=== PATIENT | male | born 1980 | race Caucasian/White ===

== ENCOUNTER → 2017-04-19 | Outpatient (CLI) | payer MEDICAID ==
--- NOTE | 2017-04-19 14:57 | RADIOLOGY REPORT (SQ) ---
EXAM DESCRIPTION: BARIUM SWALLOW ESOPHAGUS COMPLETED DATE/TIME: 04/19/2017 2:16 pm REASON FOR STUDY: DYSPHAGIA R13.12 DYSPHAGIA, OROPHARYNGEAL PHASE COMPARISON: None. TECHNIQUE: Under fluoroscopic guidance, patient ingested effervescent granules followed by thick and thin barium. Fluoroscopic spot images and routine radiographic images acquired and stored on PACS. 12 MM BARIUM TABLET GIVEN: Yes. No significant delay in passage. LIMITATIONS: None. FLUOROSCOPY TIME: FLUORO TIME: 1.8 minutes 6 series of digital images saved to PACS. FINDINGS: NEUROMUSCULAR COORDINATION OF SWALLOW: Normal. No aspiration. ESOPHAGEAL MOTILITY: Normal peristalsis. Occasional tertiary contractions of the distal esophagus. ESOPHAGEAL MUCOSA: Normal mucosa without masses or ulceration. GASTRO-ESOPHAGEAL JUNCTION: Tiny hiatal hernia. No gastroesophageal reflux on today's exam. NON-GI TRACT STRUCTURES: No significant finding. OTHER: No other significant finding. IMPRESSION: Small hiatal hernia with few tertiary contractions of the distal esophagus. No reflux o n today's study. No stricture. Fluoroscopy and digital images over the xochitl and hypopharynx are unremarkable. COMMENT: Quality ID [id number]: Final reports for procedures using fluoroscopy that document radiation exp osure indices, or exposure time and number of fluorographic images (if radiation exposure indices are not available) TECHNICAL DOCUMENTATION: JOB ID: [id number] [employer]- All Rights Reserved
== END ==
LOC: RAD 11:57
PROVIDERS: ATTEND Family Medicine
DX: R13.12 Dysphagia, oropharyngeal phase (principal)
CPT/HCPCS: 74220

== ENCOUNTER 2019-01-28 11:38 | Emergency (ER) | payer BC, MEDICAID ==
[2019-01-28] MEDS ORDERED: PROMETHAZINE HCL INJ 25 MG/1 ML VIAL IV ONE (13:19)
[2019-01-28] MEDS ORDERED: KETOROLAC TROMETHAMINE INJ/PF 30 MG/1 ML SDV IV ONE (13:19)
[2019-01-28] MEDS ORDERED: NORMAL SALINE 1000 ML 1,000 ML IV ONE (13:20)
[2019-01-28] MEDS ORDERED: DIPHENHYDRAMINE HCL 50 MG/ML VIAL IV ONE (13:49)
[2019-01-28] MEDS ORDERED: MORPHINE SULFATE 10 MG/ML INJ IV ONE (15:47)
--- NOTE | 2019-01-28 15:47 | ER Document Report ---
ED Neck/Back Problem - General Chief Complaint: Neck Pain >24hrs old Stated Complaint: NECK PAIN Time Seen by Provider: 01/28/19 13:19 Mode of Arrival: Ambulatory Information source: Patient Notes: Patient is a 38-year-old male with a history of migraines and viral meningitis when he was 23 years old who presents to the ER today for headache, neck pain, upper back pain times 2 days. Patient went to [facility] today, had lab work drawn and they sent him here by ambulance for his headache. Patient denies any fevers recently, denies any nausea, vomiting, light sensitivity, blurred vision, cough or other ill symptoms, patient states that when the migraine first came on he did have relief after Zofran, Advil and Tylenol, did actually take a long nap after that, but states when he woke up the migraine was back. TRAVEL OUTSIDE OF THE [place] IN LAST 30 DAYS: No - Related Data Allergies/Adverse Reactions: No Known Allergies Allergy (Verified 05/27/12 14:42) Past Medical History - General Information source: Patient - Social History Smoking Status: Never Smoker Chew tobacco use (# tins/day): No Frequency of alcohol use: None Drug Abuse: None Family History: CAD, CVA, Hypertension Patient has suicidal ideation: No Patient has homicidal ideation: No - Past Medical History Cardiac Medical History: Reports: Hx Hypertension Renal/ Medical History: Denies: Hx Peritoneal Dialysis GI Medical History: Reports: Hx Gastroesophageal Reflux Disease Psychiatric Medical History: Reports: Hx Anxiety - Immunizations Immunizations up to date: Yes Hx Diphtheria, Pertussis, Tetanus Vaccination: Yes Review of Systems - Review of Systems Constitutional: No symptoms reported EENT: No symptoms reported Cardiovascular: No symptoms reported Respiratory: No symptoms reported Gastrointestinal: No symptoms reported Genitourinary: No symptoms reported Male Genitourinary: No symptoms reported Musculoskeletal: No symptoms reported Skin: No symptoms reported Hematologic/Lymphatic: No symptoms reported Neurological/Psychological: See HPI Physical Exam - Vital signs Vitals: Temp Pulse Resp BP Pulse Ox 98.1 F 98 18 142/80 H 99 01/28/19 11:38 01/28/19 11:38 01/28/19 11:38 01/28/19 11:38 01/28/19 11:38 - Notes Notes: PHYSICAL EXAMINATION: GENERAL: lying in position, otherwise in no acute distress. HEAD: Atraumatic, normocephalic. EYES: Pupils equal round and reactive to light, extraocular movements intact, sclera anicteric, conjunctiva are normal. NECK: Normal range of motion, supple without lymphadenopathy LUNGS: CTAB and equal. No wheezes rales or rhonchi. HEART: Regular rate and rhythm without murmurs ABDOMEN: Soft, no tenderness. No guarding, no rebound BACK: no vertebral tenderness, normal ROM GI/: no CVA tenderness EXTREMITIES: Normal range of motion, no pitting edema. No cyanosis. NEUROLOGICAL: no signs of meningismus, lying in position, no pain with passive leg raises, no pain with chin to chest, Kernig's and Brudzinski's signs negative, cranial nerves grossly intact. Normal sensory/motor exams. PSYCH: Normal mood, normal affect. SKIN: Warm, Dry, normal turgor, no rashes or lesions noted Course - Re-evaluation Re-evalutation: 01/28/19 18:21 Patient has no signs of meningismus, feels better after migraine cocktail, reports "I have no pain" at this time. - Vital Signs Vital signs: Temp Pulse Resp BP Pulse Ox 98.2 F 74 16 134/69 H 99 01/28/19 17:27 01/28/19 17:27 01/28/19 17:27 01/28/19 17:27 01/28/19 17:27 Discharge - Discharge Clinical Impression: Migraine Qualifiers: Migraine type: unspecified Status migrainosus presence: without status migrainosus Intractability: not intractable Qualified Code(s): G43.909 - Migraine, unspecified, not intractable, without status migrainosus Condition: Stable Disposition: HOME, SELF-CARE Instructions: Migraine Headache ([facility]) Additional Instructions: Return immediately for any new or worsening symptoms. Follow up with primary care provider, call tomorrow to make followup appointment. [facility] [address] Address: [address] [place] [address] [place] [address] Prescriptions: Ibuprofen [Motrin 800 mg Tablet] 800 mg PO Q8H PRN #30 tab PRN Reason: Promethazine HCl [Phenergan 25 mg Tablet] 1 tab PO Q6H PRN #15 tablet PRN Reason: Forms: Return to Work
--- NOTE | 2019-01-28 17:00 | RADIOLOGY REPORT (SQ) ---
EXAM DESCRIPTION: CT HEAD WITHOUT COMPLETED DATE/TIME: 01/28/2019 4:13 pm REASON FOR STUDY: migraine, no hx of COMPARISON: None. TECHNIQUE: Axial images acquired through the brain without intravenous contrast. Images reviewed wi th bone, brain and subdural windows. Additional sagittal and coronal reconstructions were generated. Images stored on PACS. All CT scanners at this facility use dose modulation, iterative reconstruction, and/or weight based d osing when appropriate to reduce radiation dose to as low as reasonably achievable (ALARA). [facility]: Dose Right [facility]: CareDose [facility]: Dose Right [facility]: Teradose 4D [facility]: [employer] RADIATION DOSE: CT Rad equipment meets quality standard of care and radiation dose reduction techniq ues were employed. CTDIvol: 53.2 mGy. DLP: 991 mGy-cm. mGy. LIMITATIONS: None. FINDINGS: VENTRICLES: Normal size and contour. CEREBRUM: No masses. No hemorrhage. No midline shift. No evidence for acute infarction. Normal gra y/white matter differentiation. No areas of low density in the white matter. CEREBELLUM: No masses. No hemorrhage. No alteration of density. No evidence for acute infarction. EXTRAAXIAL SPACES: No fluid collections. No masses. ORBITS AND GLOBE: No intra- or extraconal masses. Normal contour of globe without masses. CALVARIUM: No fracture. PARANASAL SINUSES: No fluid or mucosal thickening. SOFT TISSUES: No mass or hematoma. OTHER: No other significant finding. IMPRESSION: NORMAL BRAIN CT WITHOUT CONTRAST. EVIDENCE OF ACUTE STROKE: NO. COMMENT: Quality ID # [id number]: Final reports with documentation of one or more dose reduction techniques (e.g., Automated exposure control, adjustment of the mA and/or kV according to patient size, use of iterative reconstruction technique) TECHNICAL DOCUMENTATION: JOB ID: [id number] [employer]- All Rights Reserved Reading location - IP/workstation name: [email or web address]
[2019-01-28 17:28] VITALS: BP 134/69
== END 2019-01-28 18:29 | disposition home or self-care (01) ==
LOC: ER 11:38
DX: G43.909 Migraine, unspecified, not intractable, without status migrainosus (principal); M54.2 Cervicalgia; M54.6 Pain in thoracic spine; I10 Essential (primary) hypertension
CPT/HCPCS: 99284; 96361; 96374; 96375; 70450; J1200; J1885; J2270; J2550; J7030

== ENCOUNTER 2019-06-04 23:24 | Emergency (ER) | payer BC ==
[2019-06-04] MEDS ORDERED: ASPIRIN 81 MG TABLET, CHEWABLE PO ONE (23:42)
--- NOTE | 2019-06-05 00:23 | RADIOLOGY REPORT (SQ) ---
EXAM DESCRIPTION: XR CHEST 2 VIEWS COMPLETED DATE/TME: 06/04/2019 00:00 CLINICAL HISTORY: 39 years, Male, CP COMPARISON: 11/24/2013. NUMBER OF VIEWS: 2 TECHNIQUE: Two views of the chest were obtained in PA and lateral projection. LIMITATIONS: None. FINDINGS: Unremarkable cardiac and mediastinal silhouette. Heart size is normal. Lungs are clear without focal opacity, pneumothorax or pleural effusions. The visualized bones are within normal limits. IMPRESSION: No acute cardiopulmonary abnormalities. copyright 2010 [employer]- All Rights Reserved
[2019-06-05 00:28] LABS: ABSOLUTE EOSINOPHILS # (AUTO) 0.2 10^3/uL (0.0-0.6); ABSOLUTE LYMPHOCYTES (AUTO) 1.9 10^3/uL (0.5-4.7); ABSOLUTE MONOCYTES (AUTO) 0.6 10^3/uL (0.1-1.4); ABSOLUTE NEUT (AUTO) 3.6 10^3/uL (1.7-8.2); BASOPHILS % (AUTO) 0.7 % (0-2); EOSINOPHILS % (AUTO) 3.4 % (0-6); HEMATOCRIT 43.1 % (37.9-51.0); HEMOGLOBIN 14.6 g/dL (13.5-17.0); LYMPHOCYTES % (AUTO) 30.3 % (13-45); MEAN CORPUSCULAR HEMOGLOBIN 29.6 pg (27.0-33.4); MEAN CORPUSCULAR HGB CONC 33.9 g/dL (32.0-36.0); MEAN CORPUSCULAR VOLUME 87 fl (80-97); MONOCYTES % (AUTO) 8.9 % (3-13); PLATELET COUNT 258 10^3/uL (150-450); RED BLOOD COUNT 4.94 10^6/uL (4.35-5.55); RED CELL DISTRIBUTION WIDTH 13.5 % (11.5-14.0); SEGMENTED NEUTROPHILS % (AUTO) 56.7 % (42-78); TOTAL CELLS COUNTED % (AUTO) 100 %; WHITE BLOOD COUNT 6.3 10^3/uL (4.0-10.5)
[2019-06-05 00:46] LABS: ALANINE AMINOTRANSFERASE 59 U/L (21-72); ALBUMIN 4.4 g/dL (3.5-5.0); ALKALINE PHOSPHATASE 61 U/L (38-126); ANION GAP 10 (5-19); ASPARTATE AMINO TRANSFERASE 29 U/L (17-59); BILIRUBIN,DIRECT 0.3 mg/dL (0.0-0.4); BILIRUBIN,TOTAL 0.4 mg/dL (0.2-1.3); BLOOD UREA NITROGEN 16 mg/dL (7-20); CALCIUM 10.2 mg/dL (8.4-10.2); CARBON DIOXIDE 25 mmol/L (22-30); CHLORIDE 107 mmol/L (98-107); CREATINE KINASE 89 U/L (55-170); GLUCOSE 111 mg/dL (75-110); POTASSIUM 4.1 mmol/L (3.6-5.0); TOTAL PROTEIN 7.5 g/dL (6.3-8.2)
[2019-06-05 00:58] LABS: CREATINE KINASE MB 0.63 ng/mL (<4.55)
[2019-06-05 01:05] LABS: TROPONIN I < 0.012 ng/mL
--- NOTE | 2019-06-05 02:23 | ER Document Report ---
ED General - General Chief Complaint: Chest Pain Stated Complaint: CHEST PAIN Time Seen by Provider: 06/05/19 01:16 Primary Care Provider: RODERICK DUBOIS PA-C [Primary Care Provider] - Follow up as needed TRAVEL OUTSIDE OF THE [place] IN LAST 30 DAYS: No - HPI Notes: Patient is a 39-year-old male who presents to the emergency department for evaluation of chest pain. He was at home on his couch when it started. This was about 90 minutes prior to arrival. It is a diffuse pain. When asked to describe it, I offered several adjectives including sharp, stabbing, shooting, burning, squeezing. The patient states that it was all of the above. He denies any associated dyspnea, palpitations, dizziness, diaphoresis, near syncope associated with it. He states that he tried multiple positions and did not change his pain in any way. It seemed to progressively worsen. He tried ibuprofen and Tums at home. He presented to the emergency department for further evaluation. He states he had a similar episode a few weeks ago but it was less intense. His pain was a 10 out of 10 at worst, he is now pain-free. He does not have any exertional chest tightness or pain. He sees a doctor regularly. - Related Data Allergies/Adverse Reactions: No Known Allergies Allergy (Verified 05/27/12 14:42) Past Medical History - General Information source: Patient - Social History Smoking Status: Former Smoker Family History: CAD - Stents in father in his mid-to-late 50s, CVA, Hypertension Patient has suicidal ideation: No Patient has homicidal ideation: No Renal/ Medical History: Denies: Hx Peritoneal Dialysis GI Medical History: Reports: Hx Gastroesophageal Reflux Disease Psychiatric Medical History: Reports: Hx Anxiety - Immunizations Immunizations up to date: Yes Hx Diphtheria, Pertussis, Tetanus Vaccination: Yes Review of Systems - Review of Systems Constitutional: No symptoms reported EENT: No symptoms reported Cardiovascular: See HPI Respiratory: No symptoms reported Gastrointestinal: No symptoms reported Genitourinary: No symptoms reported Musculoskeletal: No symptoms reported Skin: No symptoms reported Neurological/Psychological: No symptoms reported Physical Exam - Vital signs Vitals: Temp Pulse Resp BP Pulse Ox 97.6 F 76 18 146/101 H 98 06/04/19 23:35 06/04/19 23:35 06/04/19 23:35 06/04/19 23:35 06/04/19 23:35 - Notes Notes: Vital signs reviewed, please refer to chart. Head is normocephalic, atraumatic. Pupils equal round, reactive to light. Neck is supple without meningismus. Heart is regular rate and rhythm. Lungs are clear to auscultation bilaterally. Chest wall excursion is equal bilaterally, chest wall is nontender. Abdomen is soft, nontender, normoactive bowel sounds throughout. Extremities without cyanosis, clubbing. Posterior calves are nontender. Peripheral pulses are equal. Skin is warm and dry. Patient is awake, alert, neurological exam is nonfocal. Course - Re-evaluation Re-evalutation: 06/05/19 02:21 Patient presents emergency department for evaluation. He had laboratory investigations and EKG is obtained through triage. EKG is unremarkable. Laboratory investigations are unremarkable. Patient does have a family history of coronary artery disease, although not markedly premature. This pain is not typical. We will go ahead and order a delta troponin. If it is negative as expected, he is to follow-up with his primary care physician. The plan was explained to the patient. He was told that he may need to further seek out cardiac evaluation. He voiced understanding. 06/05/19 03:28 Patient remains chest pain-free. Second troponin is totally negative. He is to follow-up with his primary care provider. He is to return to the ED with worsening. - Vital Signs Vital signs: Temp Pulse Resp BP Pulse Ox 97.6 F 76 13 127/89 H 98 06/04/19 23:35 06/04/19 23:35 06/05/19 02:01 06/05/19 02:00 06/05/19 02:01 - Laboratory Result Diagrams: 06/05/19 00:01 06/05/19 00:01 Laboratory results interpreted by me: 06/05/19 00:01 Glucose 111 H - Diagnostic Test Radiology reviewed: Reports reviewed Radiology results interpreted by me: 06/05/19 02:23 Chest X-Ray 06/04/19 00:00 IMPRESSION: No acute cardiopulmonary abnormalities. copyright 2010 [employer]- All Rights Reserved - EKG Interpretation by Me Additional EKG results interpreted by me: 06/05/19 02:24 Sinus mechanism with a rate of 71 bpm. Normal axis and intervals, no acute ST changes concerning for ischemia or infarction. Discharge - Discharge Clinical Impression: Chest pain Condition: Stable Disposition: HOME, SELF-CARE Instructions: Chest Pain of Unclear Cause ([facility]) Additional Instructions: No clear cause was found for your chest pain today. Follow-up with your primary care provider in the next week for further evaluation. If you develop worsening or new concerning symptoms of any sort, return immediately to the emergency d epartment for reevaluation. Referrals: RODERICK DUBOIS PA-C [Primary Care Provider] - Follow up as needed
[2019-06-05 03:36] VITALS: BP 122/69
--- NOTE | 2019-06-05 18:18 | EKG REPORT ---
SEVERITY:- NORMAL ECG - SINUS RHYTHM : Confirmed by: Katty De Los Santos MD 05-Jun-2019 18:17:50
== END 2019-06-05 03:42 | disposition home or self-care (01) ==
LOC: ER 23:24
DX: R07.89 Other chest pain (principal); Z87.891 Personal history of nicotine dependence; Z82.49 Family history of ischemic heart disease and other diseases of the circulatory system
CPT/HCPCS: 36415; 71046; 80053; 82550; 82553; 84484; 85025; 93005; 93010; 99285

== ENCOUNTER 2019-11-30 08:11 | Emergency (ER) | payer BC ==
[2019-11-30 08:47] LABS: ABSOLUTE BASOPHILS # (AUTO) 0.1 10^3/uL (0.0-0.2); ABSOLUTE LYMPHOCYTES (AUTO) 1.2 10^3/uL (0.5-4.7); ABSOLUTE MONOCYTES (AUTO) 0.6 10^3/uL (0.1-1.4); ABSOLUTE NEUT (AUTO) 10.8 10^3/uL (1.7-8.2); BASOPHILS % (AUTO) 0.5 % (0-2); EOSINOPHILS % (AUTO) 0.1 % (0-6); HEMATOCRIT 44.3 % (37.9-51.0); HEMOGLOBIN 15.1 g/dL (13.5-17.0); LYMPHOCYTES % (AUTO) 9.8 % (13-45); MEAN CORPUSCULAR HEMOGLOBIN 30.2 pg (27.0-33.4); MEAN CORPUSCULAR HGB CONC 34.1 g/dL (32.0-36.0); MEAN CORPUSCULAR VOLUME 89 fl (80-97); MONOCYTES % (AUTO) 4.7 % (3-13); PLATELET COUNT 283 10^3/uL (150-450); RED CELL DISTRIBUTION WIDTH 13.8 % (11.5-14.0); SEGMENTED NEUTROPHILS % (AUTO) 84.9 % (42-78); TOTAL CELLS COUNTED % (AUTO) 100 %; WHITE BLOOD COUNT 12.7 10^3/uL (4.0-10.5)
[2019-11-30 09:07] LABS: ALBUMIN 4.7 g/dL (3.5-5.0); ALKALINE PHOSPHATASE 65 U/L (38-126); ANION GAP 12 (5-19); ASPARTATE AMINO TRANSFERASE 30 U/L (17-59); BILIRUBIN,DIRECT 0.4 mg/dL (0.0-0.4); BILIRUBIN,TOTAL 0.8 mg/dL (0.2-1.3); BLOOD UREA NITROGEN 20 mg/dL (7-20); CALCIUM 10.8 mg/dL (8.4-10.2); CARBON DIOXIDE 26 mmol/L (22-30); CHLORIDE 104 mmol/L (98-107); GLUCOSE 121 mg/dL (75-110); POTASSIUM 4.3 mmol/L (3.6-5.0)
[2019-11-30] MEDS ORDERED: ONDANSETRON HCL INJ/PF 4 MG/2 ML SDV IV ONE ×2 (09:24→10:56)
[2019-11-30] MEDS ORDERED: HYDROMORPHONE HCL INJ/PF 2 MG/ML AMPULE IV ONE ×2 (09:24→10:56)
[2019-11-30 09:26] LABS: APPEARANCE,URINE CLEAR; BILIRUBIN,URINE NEGATIVE (NEGATIVE); COLOR,URINE YELLOW; GLUCOSE, URINE NEGATIVE (NEGATIVE); KETONES,URINE NEGATIVE (NEGATIVE); LEUKOCYTE ESTERASE,URINE NEGATIVE (NEGATIVE); NITRITE,URINE NEGATIVE (NEGATIVE); PROTEIN,URINE 30 mg/dL (NEGATIVE); URINE SPECIFIC GRAVITY 1.031
[2019-11-30] MEDS ORDERED: METOCLOPRAMIDE HCL ORAL SOLN 10 MG/10 ML UDCUP PO ONE (09:31)
[2019-11-30] MEDS ORDERED: MAG HYDROX/AL HYDROX/SIMETH SUSP 30 ML UDCUP PO ONE (09:31)
[2019-11-30] MEDS ORDERED: NORMAL SALINE 1000 ML 1,000 ML IV ONE (09:31)
[2019-11-30] MEDS ORDERED: LIDOCAINE 2% VISCOUS SOLN 15 ML UDCUP PO ONE (09:31)
--- NOTE | 2019-11-30 09:38 | ER Document Report ---
ED General - General Chief Complaint: Abdominal Pain Stated Complaint: ABDOMINAL PAIN Time Seen by Provider: 11/30/19 09:23 Primary Care Provider: RODERICK DUBOIS PA-C [Primary Care Provider] - Follow up as needed Notes: 39-year-old male presents emergency department complaining of sudden onset of epigastric abdominal pain around 12 hours ago, he stated the pain eventually got so bad that he developed non-bloody nonbilious emesis with this as well. States that now he is dry heaving because he has nothing left in his stomach to bring up. States this onset shortly after eating at [employer] however he states that everybody else ate the same food he did and nobody else has any symptoms. Denies any fevers, denies any diarrhea, denies any relief with Naprosyn, Pepto-Bismol or Tums. States his only relief is lying in hot water. States the pain is somewhat worsened with drinking water however he is able to keep the water down. Patient states he had this several months ago and they were unable to figure out what it was but it went away on its own. He still has his gallbladder. Denies marijuana use. TRAVEL OUTSIDE OF THE [place] IN LAST 30 DAYS: No - Related Data Allergies/Adverse Reactions: No Known Allergies Allergy (Verified 11/30/19 08:18) Past Medical History - General Information source: Patient - Social History Smoking Status: Never Smoker Frequency of alcohol use: None Drug Abuse: None. denies: Marijuana Family History: CAD - Stents in father in his mid-to-late 50s, CVA, Hypertension Patient has suicidal ideation: No Patient has homicidal ideation: No - Past Medical History Cardiac Medical History: Reports: Hx Hypertension Renal/ Medical History: Denies: Hx Peritoneal Dialysis GI Medical History: Reports: Hx Gastroesophageal Reflux Disease Psychiatric Medical History: Reports: Hx Anxiety - Immunizations Immunizations up to date: Yes Hx Diphtheria, Pertussis, Tetanus Vaccination: Yes Review of Systems - Review of Systems Constitutional: No symptoms reported Cardiovascular: No symptoms reported Respiratory: No symptoms reported Gastrointestinal: See HPI, Abdominal pain, Nausea, Vomiting. denies: Diarrhea -: Yes All other systems reviewed and negative Physical Exam - Vital signs Vitals: Temp Pulse Resp BP Pulse Ox 97.2 F 83 26 H 153/91 H 100 11/30/19 08:11 11/30/19 08:11 11/30/19 08:11 11/30/19 08:11 11/30/19 08:11 Interpretation: Hypertensive, Tachypneic - Notes Notes: GENERAL: Pacing in the room, rubbing his abdomen, appears uncomfortable. HEAD: Normocephalic, atraumatic EYES: Pupils equal, round and reactive to light, extraocular movements intact. ENT: Oral mucosa moist, tongue midline. NECK: Full range of motion, supple, trachea midline. LUNGS: Clear to auscultation bilaterally, no wheezes, rales or rhonchi, no respiratory distress. HEART: Regular rate and rhythm, no murmurs, gallops, rubs. ABDOMEN: Soft, nontender, nondistended, bowel sounds present in all 4 quadrants. Even deep palpation of the epigastrium does not cause any pain. EXTREMITIES: Moves all 4 extremities spontaneously, no edema, radial and dorsalis pedis pulses 2/4 bilaterally. No cyanosis. NEUROLOGICAL: Alert and oriented x3, normal speech. PSYCH: Anxious and uncomfortable. SKIN: Warm, Dry, normal turgor, no rashes or lesions noted. Course - Re-evaluation Re-evalutation: 11/30/19 12:21 CBC shows slight leukocytosis at 12.7, otherwise unremarkable, CMP shows elevated calcium at 10.8 otherwise normal, urinalysis is somewhat concentrated but shows no signs of blood or infection, urine drug screen is negative, abdominal ultrasound shows stones without obstruction or infection. Patient's pain was able to be relieved with Dilaudid, patient's nausea was relieved with Zofran. At this point I see no signs of acute infection or obstruction that would indicate the need for emergent cholecystectomy today. Discussed with patient that given his cholelithiasis he will need to have his gallbladder removed as it appears to be symptomatic but it does not have to happen today. Patient will be discharged home with a limited number of Percocet as well as Zofran and Phenergan for nausea, counseled on low-fat diet and asked to follow- up with surgery within the next week. - Vital Signs Vital signs: Temp Pulse Resp BP Pulse Ox 97.2 F 83 26 H 153/91 H 100 11/30/19 08:11 11/30/19 08:11 11/30/19 08:11 11/30/19 08:11 11/30/19 08:11 - Laboratory Result Diagrams: 11/30/19 08:35 11/30/19 08:35 Laboratory results interpreted by me: 11/30/19 11/30/19 11/30/19 08:35 08:35 09:13 WBC 12.7 H Lymph % (Auto) 9.8 L Absolute Neuts (auto) 10.8 H Seg Neutrophils % 84.9 H Glucose 121 H Calcium 10.8 H Urine Protein 30 H Urine Urobilinogen 2.0 H - EKG Interpretation by Me Additional EKG results interpreted by me: 11/30/19 10:57 EKG shows sinus rhythm at a rate of 70, normal axis, normal intervals, I do not see any ST segment elevations that they describe on the computer read, no ST segment depressions, no T wave inversions per my interpretation. Discharge - Discharge Clinical Impression: Symptomatic cholelithiasis Condition: Stable Disposition: HOME, SELF-CARE Additional Instructions: Gallbladder Disease Your evaluation shows evidence of gallbladder disease. The gallbladder is a pouch under the liver which stores bile. Stones, infection, or irritation of the gallbladder cause attacks of pain. Certain foods -- fats in particular -- may provoke attacks. The usual treatment for gallbladder disease is surgical removal of the gallbladder -- called a cholecystectomy. You will be referred to a physician qualified to advise you on the best treatment for your problem. Hospitalization is not necessary. Take clear liquids only until you are painfree. After that, you should stay on a low-fat diet, with frequent SMALL meals. Call the doctor or return at once if you develop severe pain, repeated vomiting, fever, or jaundice (a yellow color in the skin and whites of the eyes). You have stones in your gallbladder. It will need to be removed. It does not need to be removed today. You should follow-up with surgery as an outpatient. You need to avoid fatty and greasy foods as it will make your pain worse. If despite my pain medication and my nausea medications that I have prescribed you that you are continuing to have severe symptoms where you cannot eat or drink anything please return to the emergency department. Please also return for fever. Please use ibuprofen (Motrin or Advil) 600-800 mg every 8 hours as needed for pain or fever. You may also use acetaminophen (Tylenol) 1000 mg every 4-6 hours as needed for pain or fever. Please be aware that many medications contain acetaminophen, do not exceed a total of 1000 mg of acetaminophen every 6 hours. Prescriptions: Ondansetron [Zofran Odt 4 mg Tablet] 4 mg PO Q4HP PRN #14 tab.rapdis PRN Reason: Oxycodone HCl/Acetaminophen [Percocet 5-325 mg Tablet] 1 tab PO Q6HP PRN #15 tab PRN Reason: Promethazine HCl [Phenergan 25 mg Tablet] 25 - 50 mg PO ASDIR PRN #12 tablet PRN Reason: Referrals: RODERICK DUBOIS PA-C [Primary Care Provider] - Follow up as needed ESTIVEN PALACIOS MD [ACTIVE STAFF] - Follow up in 3-5 days
[2019-11-30 10:22] LABS: URINE AMPHETAMINES SCREEN NEGATIVE; URINE BARBITURATES SCREEN NEGATIVE; URINE BENZODIAZEPINES SCREEN NEGATIVE; URINE COCAINE SCREEN NEGATIVE; URINE MARIJUANA (THC) SCREEN NEGATIVE; URINE METHADONE SCREEN NEGATIVE; URINE PHENCYCLIDINE SCREEN NEGATIVE
--- NOTE | 2019-11-30 10:27 | RADIOLOGY REPORT (SQ) ---
EXAM DESCRIPTION: U/S ABDOMEN LIMITED W/O DOP COMPLETED DATE/TIME: 11/30/2019 10:13 am REASON FOR STUDY: epigastric and RUQ pain COMPARISON: None. TECHNIQUE: Dynamic and static grayscale images acquired of the abdomen and recorded on PACS. Additio nal selected color Doppler and spectral images recorded. LIMITATIONS: Large patient FINDINGS: PANCREAS: Midline pancreas unremarkable LIVER: Echogenic, difficult to penetrate with the ultrasound energy from diffuse fatty infiltration. No gross masses or biliary ductal dilatation LIVER VASCULATURE: Normal directional flow of the main portal vein and hepatic veins. GALLBLADDER: There was gallstones in the gallbladder along the gallbladder neck. No pericholecystic fluid or gallbladder wall thickening. ULTRASOUND-DETECTED DOHERTY'S SIGN: Negative. INTRAHEPATIC DUCTS AND COMMON DUCT: Common bile duct at the oscar hepatis 6 mm in diameter. Distal m ost common duct not well seen. INFERIOR VENA CAVA: Not well seen due to fatty infiltration of the liver AORTA: No aneurysm. RIGHT KIDNEY: Normal size. Normal echogenicity. No solid or suspicious masses. No hydronephrosis. No calcifications. PERITONEAL AND RIGHT PLEURAL SPACE: No ascites or effusions. OTHER: No other significant findings. IMPRESSION: Stones in the gallbladder without gallbladder wall thickening or pericholecystic fluid Fatty liver TECHNICAL DOCUMENTATION: JOB ID: [id number] [employer]- All Rights Reserved Reading location - IP/workstation name: [email or web address]
[2019-11-30] MEDS ORDERED: OXYCODONE-ACETAMINOPHEN 5-325 MG TABLET PO ONE (12:20)
[2019-11-30 13:37] VITALS: BP 131/72
--- NOTE | 2019-11-30 16:01 | EKG REPORT ---
SEVERITY:- NORMAL ECG - SINUS RHYTHM : Confirmed by: Camden Ledezma MD 30-Nov-2019 16:00:22
== END 2019-11-30 13:37 | disposition home or self-care (01) ==
LOC: ER 08:11
DX: K80.20 Calculus of gallbladder without cholecystitis without obstruction (principal); R10.13 Epigastric pain; R11.2 Nausea with vomiting, unspecified; D72.829 Elevated white blood cell count, unspecified; I10 Essential (primary) hypertension; Z87.19 Personal history of other diseases of the digestive system
CPT/HCPCS: 93005; 96376; 99284; 96361; 96374; 96375; 36415; 83690; 85025; 80053; 81001; 80307; 76705; 93010; J3490; J1170; J2405; J7030

== ENCOUNTER 2020-01-14 09:54 | Day surgery (SDC) | payer BC ==
[2019-12-22 09:31] LABS: HEMOGLOBIN 15.2 g/dL (13.5-17.0); MEAN CORPUSCULAR HEMOGLOBIN 30.3 pg (27.0-33.4); MEAN CORPUSCULAR HGB CONC 33.8 g/dL (32.0-36.0); MEAN CORPUSCULAR VOLUME 90 fl (80-97); PLATELET COUNT 286 10^3/uL (150-450); RED BLOOD COUNT 5.02 10^6/uL (4.35-5.55); RED CELL DISTRIBUTION WIDTH 14.2 % (11.5-14.0); WHITE BLOOD COUNT 8.1 10^3/uL (4.0-10.5)
[2019-12-22 09:59] LABS: ALBUMIN 4.3 g/dL (3.5-5.0); ALKALINE PHOSPHATASE 55 U/L (38-126); ANION GAP 11 (5-19); ASPARTATE AMINO TRANSFERASE 24 U/L (17-59); BILIRUBIN,DIRECT 0.3 mg/dL (0.0-0.4); BILIRUBIN,TOTAL 0.5 mg/dL (0.2-1.3); BLOOD UREA NITROGEN 16 mg/dL (7-20); CALCIUM 9.6 mg/dL (8.4-10.2); CARBON DIOXIDE 25 mmol/L (22-30); CHLORIDE 104 mmol/L (98-107); GLUCOSE 121 mg/dL (75-110); POTASSIUM 4.4 mmol/L (3.6-5.0); TOTAL PROTEIN 7.5 g/dL (6.3-8.2)
--- NOTE | 2019-12-22 13:10 | RADIOLOGY REPORT (SQ) ---
EXAM DESCRIPTION: CHEST PA/LATERAL COMPLETED DATE/TIME: 12/22/2019 10:08 am REASON FOR STUDY: PRE-OP COMPARISON: 06/05/2019 EXAM PARAMETERS: NUMBER OF VIEWS: two views TECHNIQUE: Digital Frontal and Lateral radiographic views of the chest acquired. RADIATION DOSE: NA LIMITATIONS: none FINDINGS: LUNGS AND PLEURA: No opacities, masses or pneumothorax. No pleural effusion. MEDIASTINUM AND HILAR STRUCTURES: No masses or contour abnormalities. HEART AND VASCULAR STRUCTURES: Heart normal size. No evidence for failure. BONES: No acute findings. HARDWARE: None in the chest. OTHER: No other significant finding. IMPRESSION: NO SIGNIFICANT RADIOGRAPHIC FINDING IN THE CHEST. TECHNICAL DOCUMENTATION: JOB ID: [id number] 2010 [employer]- All Rights Reserved Reading location - IP/workstation name: [email or web address]
--- NOTE | 2019-12-22 18:32 | EKG REPORT ---
SEVERITY:- NORMAL ECG - SINUS RHYTHM : Confirmed by: Jaydon Renner 22-Dec-2019 18:32:06
[~2020-01-14 09:54] MED LIST: ACETAMINOPHEN 325 MG TABLET PO PRN; CEFOXITIN SODIUM 2 GM in DEXTROSE 5%-WATER 100 ML IV PRN; IBUPROFEN 800 MG in NORMAL SALINE 250 ML IV PRN; LACTATED RINGERS 1000 ML IV PRN; LIDOCAINE 0.5% INJ-PF (5 MG/ML) 50 ML SDV SUBCUT PRN
[2020-01-14] MEDS ORDERED: ACETAMINOPHEN 325 MG TABLET ONE (10:15)
[2020-01-14] MEDS ORDERED: FENTANYL CITRATE INJ/PF 250 MCG/5 ML AMPULE ONE (11:31)
[2020-01-14] MEDS ORDERED: MIDAZOLAM 2 MG/2 ML INJ ONE (11:32)
[2020-01-14] MEDS ORDERED: HYDROMORPHONE HCL INJ/PF 2 MG/ML AMPULE ONE (11:32)
[2020-01-14] MEDS ORDERED: PROPOFOL INJ 200 MG/20 ML VIAL IV ONE (11:32)
[2020-01-14] MEDS ORDERED: BUPIVACAINE HCL 0.25 % INJ/PF (2.5 MG/1 ML) 30 ML VIAL ONE (11:47)
[2020-01-14] MEDS ORDERED: DIPHENHYDRAMINE HCL 50 MG/ML VIAL IV PRN (12:45)
[2020-01-14] MEDS ORDERED: FENTANYL CITRATE INJ/PF 100 MCG/2 ML AMPUL IV PRN ×3 (12:45)
[2020-01-14] MEDS ORDERED: PROMETHAZINE HCL INJ 25 MG/1 ML VIAL IV PRN (12:45)
[2020-01-14] MEDS ORDERED: MORPHINE SULFATE 10 MG/ML INJ IV PRN (12:45)
--- NOTE | 2020-01-14 13:26 | Discharge Summary ---
Discharge Summary (SDC) - Discharge Final Diagnosis: chronic cholecystitis Date of Surgery: 01/14/20 Discharge Date: 01/14/20 Condition: Stable Treatment or Instructions: Discharge home. Diet as tolerated. Activity: No lifting greater than 10 pounds x 2 weeks. Follow-up with me in 7 to 10 days. [place] 10/325 mg p.o. every 6 hours PRN for pain. Ibuprofen 800 mg p.o. 3 times daily with meals. Okay to shower on Sunday. No tub baths, swimming pools, or hot tubs x2 weeks. Referrals: RODERICK DUBOIS PA-C [Primary Care Provider] - Discharge Diet: As Tolerated Respiratory Treatments at Home: Deep Breathing/Coughing, Incentive Spirometer Discharge Activity: No Lifting Over 10 Pounds, No Lifting/Push/Pulling Home Care Assistance: None Needed Report the Following to Your Physician Immediately: Shortness of Breath, Nausea, Vomiting, Yellow Skin, Fever over 101 Degrees, Unusual Bleeding
--- NOTE | 2020-01-14 13:35 | Operative Report ---
Nonrecallable Operative Report DATE OF SURGERY: 01/14/20 PREOPERATIVE DIAGNOSIS: Symptomatic gallstones POSTOPERATIVE DIAGNOSIS: 1. Chronic cholecystitis. 2. Duct of Luschka, high in the gallbladder fossa. OPERATION: Laparoscopic cholecystectomy SURGEON: ESTIVEN PALACIOS ANESTHESIA: GA TISSUE REMOVED OR ALTERED: Gallbladder COMPLICATIONS: Identification of a duct of Luschka high in the gallbladder fossa. This was ligated with endoscopic clips. ESTIMATED BLOOD LOSS: Minimal PROCEDURE: Drains/implants: None. Procedure in detail: After informed consent was obtained, the patient was brought to the operating room and laid in the supine position. The area of the abdomen was prepped and draped in a normal sterile fashion. A supraumbilical incision was created with a 15 blade scalpel. Dissection was carried through the subcutaneous tissues using sharp and blunt dissection. The cicatrix was identified, grasped with a Edgardo clamp, and retracted upwards. The linea alba fascia was incised sharply, the abdomen was entered sharply. The balloon trocar was inserted, and pneumoperitoneum was achieved. A subxiphoid 5 mm port was then placed under direct laparoscopic visualization. 2 more 5 mm ports were placed in the right upper quadrant in similar fashion. Atraumatic graspers were placed through the 5 mm ports. The gallbladder was retracted cephalad and laterally. Dissection was begun in the triangle of Calot. There was a dense inflammatory reaction, chronic in nature, surrounding the infundibulum of the gallbladder. The dissection was somewhat difficult. Owing to this, it was felt to be more prudent to release the gallbladder from the gallbladder fossa prior to dissecting out the hilum. The gallbladder was freed from the liver using a dome down technique. This was done with both electrocautery and blunt dissection. High in the gallbladder fossa, there was found to be a small ductal structure exiting the gallbladder fossa and entering into the midportion of the gallbladder. I believe this to represent a duct of Luschka. This was ligated, and the gallbladder was freed from it. The dissection was carried inferiorly, hugging the wall of the gallbladder. The infundibulum was then encountered. There was a large stone impacted in the infundibulum. This was milked up into the lumen of the gallbladder. A PDS Endoloop was then secured around the infundibulum. The cystic duct was not dissected free, as there was a large amount of inflammation in this area. It was felt dangerous to disturb the area needlessly. Once the PDS Endoloop was secured around the infundibulum, the gallbladder was amputated. It was then placed into an Endo Catch bag, and pulled out through the umbilicus. The camera was reinserted. The gallbladder fossa and hilum were inspected. The abdomen was copiously irrigated and suctioned until the effluent was clear. Great care was taken to examine the area where the duct of Luschka was identified. There was no leakage of blood or bile from the gallbladder fossa or from the hilum. Once this was confirmed, the 5 mm trochars were removed under direct laparoscopic visualization. The supraumbilical trocar was removed, and pneumoperitoneum was relieved. The supraumbilical fascia was then closed using 0 Vicryl suture in [id number] fashion. The overlying skin was closed using 4-0 Vicryl Rapide suture in subcuticular fashion. Dressings were placed, and the procedure was concluded. All sponge, instrument, and needle counts were correct x2. Condition: Stable.
[2020-01-14] MEDS ORDERED: MEPERIDINE HCL/PF INJ 25 MG/1 ML DISP.SYRIN ONE (13:40)
[2020-01-14] MEDS ORDERED: ONDANSETRON HCL INJ/PF 4 MG/2 ML SDV ONE (14:35)
[2020-01-14] MEDS ORDERED: NEOSTIGMINE METHYLSULFATE 10 MG/10 ML VIAL ONE (14:35)
[2020-01-14] MEDS ORDERED: GLYCOPYRROLATE 1 MG/5 ML VIAL ONE (14:35)
[2020-01-14] MEDS ORDERED: ROCURONIUM BROMIDE INJ 50 MG/5 ML VIAL IV ONE (14:35)
[2020-01-14] MEDS ORDERED: DEXAMETHASONE SOD PHOSPHATE INJ 4 MG/1 ML VIAL ONE (14:35)
[2020-01-14] MEDS: MEPERIDINE HCL/PF INJ 25 MG/1 ML DISP.SYRIN IV PRN ×2 (14:37→14:42)
[2020-01-14 18:26] VITALS: BP 123/82
== END 2020-01-14 16:10 | disposition home or self-care (01) ==
LOC: OROUT 09:54
PROVIDERS: ATTEND Surgery
DX: K80.10 Calculus of gallbladder with chronic cholecystitis without obstruction (principal); S36.13XA Injury of bile duct, initial encounter; X58.XXXA Exposure to other specified factors, initial encounter; Y92.530 Ambulatory surgery center as the place of occurrence of the external cause; I10 Essential (primary) hypertension; Z87.891 Personal history of nicotine dependence; G03.2 Benign recurrent meningitis [Mollaret]; B00.9 Herpesviral infection, unspecified; N20.0 Calculus of kidney; Z79.899 Other long term (current) drug therapy; E66.3 Overweight; Z68.30 Body mass index [BMI] 30.0-30.9, adult
CPT/HCPCS: 93005; 36415; 85027; 80053; 88304 ×2; 71046; 93010; 00790; 47562; 47579; J2250; J3490 ×2; J1100; J3010; J2175; J2710; J1170; J2405; J7060; J7050; J2704; J1741; J0694; 790